=== PATIENT | male | born 1995 | race African-American/Black ===

== ENCOUNTER 2019-08-11 10:57 | Emergency (ER) | payer MEDICAID ==
[~2019-08-11] VITALS: Ht 180.3 cm; Wt 77.0 kg
[2019-08-11 10:59] VITALS: BP 120/67
== END 2019-08-11 12:25 | disposition home or self-care (01) ==
LOC: ER 11:05
DX: R56.9 Unspecified convulsions (principal); R53.1 Weakness; R42 Dizziness and giddiness; F41.9 Anxiety disorder, unspecified; F32.9 Major depressive disorder, single episode, unspecified
CPT/HCPCS: 99283